=== PATIENT | female | born 1975 | race African-American/Black ===

== ENCOUNTER 2018-05-25 19:37 | Observation (INO) | payer OTHER ==
[~2018-05-25] VITALS: Ht 171.4 cm; Wt 227.8 kg
--- OUTSIDE RECORDS SUMMARY | 2018-05-25 19:39 | XMS REPORT ---
Author Author [facility] Address Unknown Phone Unavailable Care Team Providers Care Well Testing Operator Name Role Phone UNKNOWN, REFFERING PP Unavailable KENNETH BARR M.D. Unavailable Unavailable Problems This patient has no known problems. Allergies, Adverse Reactions, Alerts This patient has no known allergies or adverse reactions. Medications This patient has no known medications. Results Test Description Test Time Test Comments Text Results Atomic Results Result Comments BHCG, Urine, Qualitative 2017-10-14 13:58:00 Preg Qual [Ur] (test code=HUHCG) Negative Negative
[2018-05-25] MEDS ORDERED: ONDANSETRON HCL INJ 2 MG/ML VIAL IV STA (22:19)
[2018-05-25] MEDS ORDERED: POTASSIUM CHLORIDE 20 MEQ TAB CR PO STA (22:19)
[2018-05-25] MEDS ORDERED: SODIUM CHLORIDE FLUSH 10 ML SYR INJ PRN (23:00)
[2018-05-25] MEDS ORDERED: ONDANSETRON HCL INJ 2 MG/ML VIAL IV PRN (23:00)
[2018-05-25] MEDS ORDERED: PROMETHAZINE 12.5MG/ NACL 0.9% 12.5 MG/50 ML BAG IV PRN (23:00)
[2018-05-25] MEDS: KCL 20MEQ/.9 SOD CHL 1,000 ML IV SCH (23:00)
[2018-05-26] VITALS (7 sets, daily range): BP systolic 109–130; BP diastolic 55–89
[2018-05-26] MEDS: KCL 20MEQ/.9 SOD CHL 1,000 ML IV SCH ×3 (00:56→14:31)
[2018-05-26 07:47] LABS: ANION GAP 10.4 mmol/L (8-16); BLOOD UREA NITROGEN 5 mg/dL (7-26); BUN/CREATININE RATIO 7 (6-25); CALCIUM 8.9 mg/dL (8.4-10.2); CARBON DIOXIDE 25 mmol/L (22-29); CHLORIDE 105 mmol/L (98-107); CREATININE, SERUM 0.71 mg/dL (0.57-1.11); EST GLOMERULAR FILTRATION RATE > 60 ML/MIN (60-); GLUCOSE 101 mg/dL (74-118); POTASSIUM 3.4 mmol/L (3.5-5.1); SODIUM 137 mmol/L (136-145)
[2018-05-26] MEDS ORDERED: POTASSIUM CHLORIDE 20 MEQ TAB CR PO ONE (09:15)
[2018-05-26] MEDS: METOCLOPRAMIDE HCL 10 MG TAB PO SCH ×3 (09:30→16:37)
[2018-05-26] MEDS ORDERED: PHENERGAN SUPP25 MG PR (18:07)
[2018-05-26] MEDS ORDERED: PEPCID20 MG PO (18:07)
[2018-05-26] MEDS ORDERED: REGLAN10 MG PO (18:07)
[2018-05-26] MEDS ORDERED: linzess PO (18:07)
--- NOTE | 2018-05-26 19:54 | History and Physical ---
SHORTSTAY The patient does not have a local primary care physician. CHIEF COMPLAINT: Recalcitrant nausea and vomiting and hypokalemia. HISTORY OF PRESENT ILLNESS: Ms. Sibley is a 43-year-old lady with a longstanding history of morbid obesity, gastroparesis, recent gastric sleeve and hiatal hernia repair which has only made her nausea and vomiting worse. She comes in with recalcitrant nausea and vomiting for the last 2 to 3 days and was found to have a potassium of 2.4. She was admitted for K replacement and got antiemetics. REVIEW OF SYSTEMS: She denies fever, chills or weight loss. Denies sinus congestion or sore throat. Denies chest pain or palpitation. She denies shortness of breath or wheezing or cough. She denies abdominal pain. She does complain of constipation. She does complain of nausea, vomiting and acid reflux. She denies dysuria or flank pain. She denies rash or pruritus. She denies joint pain or swelling. She denies headache, vertigo or loss of consciousness. She denies depression, agitation, homicide or suicidal ideation. PAST MEDICAL HISTORY: Significant for recently diagnosed hypothyroidism for which she is a 50 mcg of levothyroxine. She has longstanding gastroparesis for which she has not been getting any medication. She has long-standing constipation for which she has been taking Linzess in the past but insurance has stopped paying for it. She has not had a bowel movement in about a week. She has also morbid obesity. She has a recent history of gastric sleeve and hiatal hernia repair some time within the last month. MEDICATIONS: Thyroid medicine as noted. ALLERGIES: SHE HAS A STATED ALLERGY TO NSAIDs. FAMILY HISTORY: Unremarkable. SOCIAL HISTORY: The patient is and [place]ian is her primary language. She does not smoke, drink or use illegal drugs. She is generally independently functioning. PHYSICAL EXAM: PSYCHIATRIC: The patient is alert and oriented times 3 with normal mood and affect. CONSTITUTIONAL: She is morbidly obese with a BMI of 77 and a weight of roughly 502 pounds. VITAL SIGNS: Blood pressure 110/69. Pulse 86 and regular. Respiratory rate 18. O2 sat 96% on room air. Temperature 97.0. HEENT: Head is atraumatic. Eyes are anicteric with clear conjunctivae. Ears and nares are without erythema or discharge. Oropharynx is clear. NECK: Is supple with no mass or thyromegaly. LYMPHATIC SYSTEM: She has no palpable cervical, axillary or inguinal adenopathy. CARDIOVASCULAR: Heart has a regular rate and rhythm without murmur or extra heart sound. She has no carotid bruit. She has trace bipedal edema. Palpable dorsal pedal pulses. RESPIRATORY: Clear to auscultation and percussion with normal respiratory effort. GASTROINTESTINAL: Her abdomen. She has some mid epigastric tenderness that is mild with no rebound or guarding. She has normal bowel sounds present. She has no hepatosplenomegaly or masses palpable. CUTANEOUS: Her skin is warm and dry to touch with no rash or skin breakdown. MUSCULOSKELETAL: Joints are in normal alignment without erythema or swelling. She has no calf tenderness. NEUROLOGIC: Exam is nonfocal with intact cranial nerves and no motor or sensory deficits. DIAGNOSTIC STUDIES: Initial chemistry showed potassium of 2.4. After hydration and K replacement overnight, her potassium was 3.4. She has received another 40 mEq p.o. The rest of her electrolytes are normal. Creatinine 0.71. BUN 5 for a normal GFR. Glucose is 101. IMPRESSION AND PLAN 1. Gastroparesis. Will start Reglan and Pepcid. The patient has not been on either one before. 2. Hypothyroidism. Will continue her home medicine of levothyroxine. 3. Constipation. Will continue her Linzess that she uses at home. 4. Morbid obesity. Patient has had a recent gastric sleeve and has already been fully educated on dietary counseling. HOSPITAL COURSE: The patient was admitted overnight for observation and her potassium was repleted. She felt much better the following day and was tolerating regular food and was discharged home with a prescription for Reglan and Pepcid for her gastroparesis and acid reflux along with Linzess for constipation. She will continue her thyroid medicine. She can resume her post gastric sleeve diet. Activity as tolerated and follow up with her PCP within 2 weeks. Job#: [id number]
== END 2018-05-26 19:25 | disposition home or self-care (01) ==
LOC: FSED 19:37 → INTOOBSV 23:57 → ERHOLD 23:57 → IMCU 05-26 00:35
PROVIDERS: ADMIT Internal Medicine; ATTEND Internal Medicine
DX: K31.84 Gastroparesis (principal); R11.2 Nausea with vomiting, unspecified; K59.00 Constipation, unspecified; Z98.84 Bariatric surgery status; I10 Essential (primary) hypertension; E03.9 Hypothyroidism, unspecified; E66.01 Morbid (severe) obesity due to excess calories; Z68.45 Body mass index [BMI] 70 or greater, adult; E87.6 Hypokalemia; K21.9 Gastro-esophageal reflux disease without esophagitis
CPT/HCPCS: 36415; 80048; 96360; 99284; G0378 ×2

== ENCOUNTER 2018-10-04 08:48 | Emergency (ER) | payer SELFPAY ==
[~2018-10-04] VITALS: Ht 171.4 cm; Wt 200.9 kg
[~2018-10-04 08:48] MED LIST: PEPCID20 MG PO; PHENERGAN SUPP25 MG PR; REGLAN10 MG PO; linzess PO
== END 2018-10-04 09:57 | disposition home or self-care (01) ==
LOC: FSED 08:48
DX: R30.0 Dysuria (principal); N39.0 Urinary tract infection, site not specified; Z98.84 Bariatric surgery status
CPT/HCPCS: 81003; 81025; 99283

== ENCOUNTER 2020-10-04 08:34 | Emergency (ER) | payer OTHER ==
[~2020-10-04] VITALS: Ht 170.2 cm; Wt 148.1 kg
[2020-10-04] MEDS ORDERED: CYMBALTA60 MG PO (09:06)
[2020-10-04] MEDS ORDERED: ATENOLOL50 MG PO (09:06)
[2020-10-04] MEDS ORDERED: NORVASC10 MG PO (09:06)
[2020-10-04] MEDS ORDERED: LEVOTHYROXINE50 MCG PO (09:06)
[2020-10-04] MEDS ORDERED: PROTONIX20 MG PO (09:06)
[2020-10-04] MEDS ORDERED: ONDANSETRON HCL INJ 2MG/ML 2ML 2 MG/ML VIAL ONE (09:21)
[2020-10-04] MEDS ORDERED: FAMOTIDINE 20 MG/2 ML VIAL IV ONE (09:21)
[2020-10-04] MEDS ORDERED: SODIUM CHLORIDE 0.9% 1000ML 1,000 ML ONE (09:21)
[2020-10-04] MEDS ORDERED: ONDANSETRON HCL INJ 2MG/ML 2ML 2 MG/ML VIAL IV STA (09:23)
[2020-10-04] MEDS ORDERED: FAMOTIDINE 20 MG/2 ML VIAL IV STA (09:23)
[2020-10-04] MEDS ORDERED: SODIUM CHLORIDE 0.9% 1000ML 1,000 ML IV SCH (09:30)
[2020-10-04] MEDS ORDERED: PHENERGAN SUPP25 MG PR (10:41)
[2020-10-04] MEDS ORDERED: LACTULOSE20 GM/30 M PO (10:42)
[2020-10-04 11:05] VITALS: BP 162/96
== END 2020-10-04 10:56 | disposition home or self-care (01) ==
LOC: FSED 09:10
DX: R11.2 Nausea with vomiting, unspecified (principal); K31.84 Gastroparesis; E87.6 Hypokalemia; R51.9 Headache, unspecified; I10 Essential (primary) hypertension; E03.9 Hypothyroidism, unspecified; Z85.41 Personal history of malignant neoplasm of cervix uteri
CPT/HCPCS: 74022; 80048; 80076; 81003; 81025; 82553; 84484; 85025; 96374; 96375; 99284; J2405; J7030

== ENCOUNTER 2021-03-29 10:35 | Outpatient (RCR) | payer OTHER ==
[~2021-03-29 10:35] MED LIST changes: +ATENOLOL50 MG PO; +CYMBALTA60 MG PO; +LACTULOSE20 GM/30 M PO; +LEVOTHYROXINE50 MCG PO; +NORVASC10 MG PO; +PROTONIX20 MG PO
== END 2021-04-02 ==
LOC: WCC 10:35
PROVIDERS: ATTEND Internal Medicine Infectious Disease
DX: T81.30XA Disruption of wound, unspecified, initial encounter (principal); T81.89XA Other complications of procedures, not elsewhere classified, initial encounter; M96.89 Other intraoperative and postprocedural complications and disorders of the musculoskeletal system; G89.29 Other chronic pain; I10 Essential (primary) hypertension; E03.9 Hypothyroidism, unspecified; Z85.41 Personal history of malignant neoplasm of cervix uteri

== ENCOUNTER 2021-05-25 19:04 | Emergency (ER) | payer OTHER ==
[~2021-05-25] VITALS: Ht 170.2 cm; Wt 135.6 kg
[2021-05-25] MEDS ORDERED: DEXAMETHASONE SOD PHOS INJ 4 MG/ML SDV IM ONE (19:45)
[2021-05-25] MEDS ORDERED: DEXAMETHASONE SOD PHOS INJ 4 MG/ML SDV ONE (20:07)
[2021-05-25] MEDS ORDERED: OBREDON 2.5-20118 ML PO (20:19)
[2021-05-25] MEDS ORDERED: PREDNISONE20 MG PO (20:19)
[2021-05-25 20:44] VITALS: BP 142/96
== END 2021-05-25 20:44 | disposition home or self-care (01) ==
LOC: FSED 19:38
DX: U07.1 COVID-19 (principal); J40 Bronchitis, not specified as acute or chronic; R06.00 Dyspnea, unspecified; R53.83 Other fatigue; I10 Essential (primary) hypertension; E03.9 Hypothyroidism, unspecified; Z85.41 Personal history of malignant neoplasm of cervix uteri; Z98.84 Bariatric surgery status
CPT/HCPCS: 71045; 81003; 81025; 96372; 99283; J1100

== ENCOUNTER 2022-01-07 07:24 | Emergency (ER) | payer OTHER ==
[~2022-01-07] VITALS: Ht 170.2 cm; Wt 135.6 kg
[~2022-01-07 07:24] MED LIST changes: +OBREDON 2.5-20118 ML PO; +PREDNISONE20 MG PO
[2022-01-07] MEDS ORDERED: AUGMENTIN 500-1 EACH PO (07:39)
[2022-01-07] MEDS ORDERED: BROMFED DM COU118 ML PO (07:39)
[2022-01-07] MEDS ORDERED: DIFLUCAN100 MG PO (07:39)
== END 2022-01-07 07:50 | disposition home or self-care (01) ==
LOC: ER 07:28
DX: R05.9 Cough, unspecified (principal); J06.9 Acute upper respiratory infection, unspecified; H66.92 Otitis media, unspecified, left ear; I10 Essential (primary) hypertension; E03.9 Hypothyroidism, unspecified; Z85.41 Personal history of malignant neoplasm of cervix uteri
CPT/HCPCS: 99282

== ENCOUNTER 2022-04-18 22:52 | Emergency (ER) | payer OTHER ==
[~2022-04-18] VITALS: Ht 172.7 cm; Wt 135.6 kg
[~2022-04-18 22:52] MED LIST changes: +AUGMENTIN 500-1 EACH PO; +BROMFED DM COU118 ML PO; +DIFLUCAN100 MG PO
[2022-04-18] MEDS ORDERED: ACETAMINOPHEN 325 MG TAB PO ONE (23:15)
[2022-04-18] MEDS ORDERED: CEFTRIAXONE 1 GM VIAL IM ONE (23:15)
[2022-04-18] MEDS ORDERED: DIPHENHYDRAMINE25 MG PO (23:25)
[2022-04-18] MEDS ORDERED: ACETAMINOPHEN500 MG PO (23:25)
[2022-04-18] MEDS ORDERED: AUGMENTIN 500-1 EACH PO (23:25)
[2022-04-18] MEDS ORDERED: ACETAMINOPHEN 325 MG TAB ONE (23:32)
[2022-04-18] MEDS ORDERED: CEFTRIAXONE 1 GM VIAL ONE (23:33)
[2022-04-18] MEDS ORDERED: DIFLUCAN100 MG PO (23:36)
== END 2022-04-18 23:50 | disposition home or self-care (01) ==
LOC: FSED 23:04
DX: K04.7 Periapical abscess without sinus (principal); K02.9 Dental caries, unspecified; R42 Dizziness and giddiness; I10 Essential (primary) hypertension; E03.9 Hypothyroidism, unspecified; M79.7 Fibromyalgia; Z85.41 Personal history of malignant neoplasm of cervix uteri; Z98.84 Bariatric surgery status
CPT/HCPCS: 99283; J0696

== ENCOUNTER 2022-05-25 19:47 | Emergency (ER) | payer OTHER ==
[~2022-05-25] VITALS: Ht 172.7 cm; Wt 141.1 kg
[~2022-05-25 19:47] MED LIST changes: +ACETAMINOPHEN500 MG PO; +DIPHENHYDRAMINE25 MG PO
[2022-05-25] MEDS ORDERED: ZITHROMAX250 MG PO (20:56)
[2022-05-25 21:42] VITALS: BP 133/86
== END 2022-05-25 21:42 | disposition home or self-care (01) ==
LOC: FSED 20:21
DX: R05.9 Cough, unspecified (principal); J40 Bronchitis, not specified as acute or chronic; I10 Essential (primary) hypertension; E03.9 Hypothyroidism, unspecified; Z85.41 Personal history of malignant neoplasm of cervix uteri; Z98.84 Bariatric surgery status
CPT/HCPCS: 87400; 99282

== ENCOUNTER 2024-05-12 10:41 | Emergency (ER) | payer OTHER ==
[~2024-05-12] VITALS: Ht 172.7 cm; Wt 163.3 kg
[~2024-05-12 10:41] MED LIST changes: +CEFDINIR300 MG PO; +CEPHALEXIN500 MG PO; +DIFLUCAN150 MG PO; +MUPIROCIN22 GM TOP; +ONDANSETRON ODT4 MG PO; +PYRIDIUM200 MG PO; +ULTRAM 50MG50 MG PO; +ZITHROMAX250 MG PO
[2024-05-12] MEDS: LIDOCAINE HCL 1% LOCAL INJ 20 ML VIAL INJ ONE (11:16)
[2024-05-12] MEDS: NEOMYCIN/POLYMYX/BACITR OINT 0.9 GM PKT TOP ONE (11:16)
[2024-05-12] MEDS: SODIUM CHLORIDE 0.9% 1000ML 1,000 ML IV ONE (12:00)
[2024-05-12] MEDS: FAMOTIDINE 20 MG/2 ML VIAL IV STA (12:48)
[2024-05-12] MEDS: ONDANSETRON HCL INJ 2MG/ML 2ML 2 MG/ML VIAL IV STA (12:48)
[2024-05-12] MEDS ORDERED: FAMOTIDINE 20 MG/2 ML VIAL IV ONE (12:52)
[2024-05-12] MEDS ORDERED: ONDANSETRON HCL INJ 2MG/ML 2ML 2 MG/ML VIAL ONE (12:52)
[2024-05-12] MEDS: CEPHALEXIN MONOHYDRATE 250 MG CAP PO ONE (13:23)
[2024-05-12 13:31] VITALS: PULSE 68; RESP 18; TEMP 97.3; O2SAT 98
== END 2024-05-12 14:07 | disposition home or self-care (01) ==
LOC: FSED 10:45
DX: S01.511A Laceration without foreign body of lip, initial encounter (principal); S51.812A Laceration without foreign body of left forearm, initial encounter; F10.129 Alcohol abuse with intoxication, unspecified; W01.0XXA Fall on same level from slipping, tripping and stumbling without subsequent striking against object, initial encounter; Y92.89 Other specified places as the place of occurrence of the external cause; I10 Essential (primary) hypertension; E03.9 Hypothyroidism, unspecified; K21.9 Gastro-esophageal reflux disease without esophagitis; L92.3 Foreign body granuloma of the skin and subcutaneous tissue; Z98.84 Bariatric surgery status
CPT/HCPCS: 12001; 12011; 36415; 70450; 72125; 73080; 80320; 82948; 96360; 96372; 96374; 96375; 99284; J2003; J2405; J7030

== ENCOUNTER 2024-05-21 20:00 | Emergency (ER) | payer OTHER ==
[~2024-05-21] VITALS: Ht 172.7 cm; Wt 166.0 kg
[2024-05-21 20:37] VITALS: PULSE 100; RESP 18; TEMP 98.7
[2024-05-21] MEDS ORDERED: CEFADROXIL1 GM PO (21:25)
[2024-05-21] MEDS ORDERED: PHENERGAN SUPP25 MG RC (21:25)
[2024-05-21] MEDS ORDERED: ONDANSETRON ODT4 MG PO (21:25)
[2024-05-21] MEDS: ONDANSETRON HCL 4 MG ORAL DISINTEGRATING TAB PO ONE (21:45)
[2024-05-21] MEDS: CEFTRIAXONE 1 GM VIAL IM ONE (21:45)
[2024-05-21] MEDS ORDERED: LIDOCAINE HCL 1% LOCAL INJ 20 ML VIAL ONE (21:48)
[2024-05-21 22:10] VITALS: BP 155/93; PULSE 100; RESP 18; TEMP 98.7; O2SAT 98
== END 2024-05-21 22:10 | disposition home or self-care (01) ==
LOC: FSED 20:18
DX: Z48.02 Encounter for removal of sutures (principal); L08.89 Other specified local infections of the skin and subcutaneous tissue; K08.89 Other specified disorders of teeth and supporting structures; I10 Essential (primary) hypertension; E03.9 Hypothyroidism, unspecified; K21.9 Gastro-esophageal reflux disease without esophagitis; Z85.41 Personal history of malignant neoplasm of cervix uteri; M79.7 Fibromyalgia; E66.01 Morbid (severe) obesity due to excess calories; H40.9 Unspecified glaucoma; Z98.84 Bariatric surgery status; F17.210 Nicotine dependence, cigarettes, uncomplicated
CPT/HCPCS: 96372; 99282; J0696; J2003; Q0162; S0630

== ENCOUNTER 2024-05-24 13:47 | Emergency (ER) | payer OTHER ==
[~2024-05-24] VITALS: Ht 172.7 cm; Wt 166.0 kg
[~2024-05-24 13:47] MED LIST changes: +CEFADROXIL1 GM PO; +PHENERGAN SUPP25 MG RC
[2024-05-24] MEDS ORDERED: CEFEPIME 2 GM in SODIUM CHLORIDE 0.9% 100 ML IV ONE (15:30)
[2024-05-24] MEDS ORDERED: SODIUM CHLORIDE 0.9% 100 ML ONE (15:38)
[2024-05-24] MEDS: SODIUM CHLORIDE 0.9% 1000ML 1,000 ML IV STA (15:41)
[2024-05-24] MEDS: KETOROLAC TROMETHAMINE 30 MG/ML VIAL IV STA ×2 (15:41→21:32)
[2024-05-24] MEDS: HYDROCODONE/APAP 5MG-325MG TAB PO ONE ×2 (17:31)
[2024-05-24] MEDS: Vancomycin IV 1 GM in SODIUM CHLORIDE 0.9% 250ML 250 ML IV SCH (17:37)
[2024-05-24 18:13] VITALS: PULSE 76; RESP 18; TEMP 97.5
[2024-05-24] MEDS: CEFEPIME 2 GM in SODIUM CHLORIDE 0.9% 100 ML IV ONE (21:33)
[2024-05-24 21:51] VITALS: BP 174/85; PULSE 71; RESP 18; TEMP 98.5; O2SAT 97
== END 2024-05-24 22:22 | disposition other institution (70) ==
LOC: FSED 13:49
DX: L03.114 Cellulitis of left upper limb (principal); L02.414 Cutaneous abscess of left upper limb; I10 Essential (primary) hypertension; E03.9 Hypothyroidism, unspecified; M79.7 Fibromyalgia; E66.9 Obesity, unspecified; H40.9 Unspecified glaucoma; Z85.41 Personal history of malignant neoplasm of cervix uteri; Z98.84 Bariatric surgery status
CPT/HCPCS: 76536; 80053; 85025; 93971; 99284; J0692; J1885; J3370; J7030; J7050 ×2

== ENCOUNTER 2024-09-17 17:11 | Emergency (ER) | payer OTHER ==
[~2024-09-17] VITALS: Ht 172.7 cm; Wt 159.4 kg
[2024-09-17] MEDS ORDERED: DOXYCYCLINE HY100 MG PO (17:32)
[2024-09-17] MEDS ORDERED: TYLENOL325 MG PO (17:32)
[2024-09-17] MEDS ORDERED: TRAMADOL HCL 50 MG TAB ONE (17:32)
[2024-09-17] MEDS: TRAMADOL HCL 50 MG TAB PO ONE (17:37)
[2024-09-17 18:22] VITALS: PULSE 80; RESP 18; TEMP 97.7; O2SAT 96
== END 2024-09-17 18:17 | disposition home or self-care (01) ==
LOC: FSED 17:17
DX: S01.81XA Laceration without foreign body of other part of head, initial encounter (principal); W01.198A Fall on same level from slipping, tripping and stumbling with subsequent striking against other object, initial encounter; Y93.E1 Activity, personal bathing and showering; Y92.89 Other specified places as the place of occurrence of the external cause; I10 Essential (primary) hypertension; E03.9 Hypothyroidism, unspecified; K21.9 Gastro-esophageal reflux disease without esophagitis; Z85.41 Personal history of malignant neoplasm of cervix uteri; Z98.84 Bariatric surgery status
CPT/HCPCS: 70450; 99284